=== PATIENT | female | born 2000 | race Caucasian/White ===

== ENCOUNTER 2020-09-09 07:47 | Emergency (ER) | payer BC, OTHER ==
--- OUTSIDE RECORDS SUMMARY | 2020-09-09 07:49 | XMS REPORT | Continuity of Care Document ---
:2000 Author Organization [facility] t Address [address] [place] [address] Care Team Providers Name Role Phone Charanjit Mahoney DO Attending Clinician Lab, Fam Pob I Attending Clinician Unavailable Christian PRINGLE K Attending Clinician Unavailable Meeta MIXON Attending Clinician Doctor Unassigned, Name Attending Clinician Unavailable Problems This patient has no known problems. Allergies, Adverse Reactions, Alerts This patient has no known allergies or adverse reactions. Medications This patient has no known medications. Procedures This patient has no known procedures. Encounters Start End Encounter Admission Attending Care Care Encounter Source Date/Time Date/Time Type Type Clinicians Facility Department ID 2020-09-03 2020-09-03 Patient RADHA Mahoney [id number] 00:00:00 00:00:00 Outreach [facility] [id number] Charanjit [facility] [id number] PAVILLION [phone] [id number] 2020-07-04 2020-07-04 Laboratory Lab, [facility] [id number] 13:21:27 13:41:27 Only Fam [facility] [id number] [place] [id number] Professio [phone] nal [address] One 2020-06-11 2020-06-11 Ancillary Christian [facility] [id number] 1994 14:27:24 15:07:24 Visit Sabine Shin [id number] [place] [id number] Professio [phone] nal 179 Building 2020-06-05 2020-06-05 Ancillary Christian [facility] [id number] 1989 14:10:02 14:49:37 Visit Sabine Shin [id number] [place] [id number] Professio [phone] [facility] 179 Building 2020-06-04 2020-06-04 Office Meeta [facility] [id number] 13:17:51 14:10:51 Visit [facility] [id number] [place] [id number] [place] [phone] Medical [address] Office Building 2020-06-04 2020-06-04 Orders Doctor NATHEN [id number] 00:00:00 00:00:00 Only Unassigned, RENÉ [id number] [facility] [phone] [id number] Results This patient has no known results.
--- NOTE | 2020-09-09 09:30 | RAD REPORT ---
EXAM DESCRIPTION: RAD - Wrist Right 3 View - 09/09/2020 8:52 am CLINICAL HISTORY: PAIN COMPARISON: No comparisons FINDINGS: No fracture is identified. There is no dislocation or periosteal reaction noted. Epiphyses and growth plates are normal in appearance. No foreign body or other soft tissue abnormality. IMPRESSION: Negative right wrist examination.
--- NOTE | 2020-09-09 09:31 | RAD REPORT ---
EXAM DESCRIPTION: RAD - Forearm Right - 09/09/2020 8:53 am CLINICAL HISTORY: PAIN COMPARISON: No comparisonsNone. FINDINGS: No fracture is identified. There is no dislocation or periosteal reaction noted. No foreign body or other soft tissue abnormality. IMPRESSION: Negative right forearm examination.
--- NOTE | 2020-09-09 10:32 | ER ---
Nurse's Notes [facility] Name: Nae Zambrano Age: 20 yrs Sex: Female : 2000 Arrival Date: 09/09/2020 Time: 07:53 Bed 23 Private MD: Diagnosis: Contusion of right wrist;Contusion of right forearm Presentation: 09/09 08:22 Chief complaint: Patient states: was pulling pallets and two crates fell on her right iw arm and hand X 2 days ago, pain has gotten worse. Coronavirus screen: At this time, the client does not indicate any symptoms associated with coronavirus-19. Ebola Screen: Patient negative for fever greater than or equal to 101.5 degrees Fahrenheit, and additional compatible Ebola Virus Disease symptoms Patient denies exposure to infectious person. Patient denies travel to an Ebola-affected area in the 21 days before illness onset. No symptoms or risks identified at this time. Initial Sepsis Screen: Does the patient meet any 2 criteria? No. Patient's initial sepsis screen is negative. Does the patient have a suspected source of infection? No. Patient's initial sepsis screen is negative. Risk Assessment: Do you want to hurt yourself or someone else? Patient reports no desire to harm self or others. Onset of symptoms was September 07, 2020. 08:22 Method Of Arrival: Ambulatory iw 08:22 Acuity: RAFAEL 4 iw Triage Assessment: 10:30 General: Appears in no apparent distress. Behavior is calm, cooperative. iw 10:30 Pain: Complains of pain in right forearm and right wrist. 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 - Social history:: Smoking status: Patient denies any tobacco usage or history of. Screenin:30 Abuse screen: Denies threats or abuse. Denies injuries from another. Nutritional iw screening: No deficits noted. Tuberculosis screening: No symptoms or risk factors identified. Fall Risk None identified. Assessment: 10:30 Reassessment: Patient appears in no apparent distress at this time. Patient and/or iw family updated on plan of care and expected duration. Pain level reassessed. Patient is alert, oriented x 3, equal unlabored respirations, skin warm/dry/pink. Vital Signs: 08:22 BP 142 / 97; Pulse 83; Resp 16; Temp 98.4; Pulse Ox 100% on R/A; Weight 59.87 kg; iw Height 6 ft. 0 in. (182.88 cm); Pain 8/10; 10:53 BP 125 / 79; Pulse 70; Resp 16; Pulse Ox 98% on R/A; iw 08:22 Body Mass Index 17.90 (59.87 kg, 182.88 cm) iw ED Course: 07:53 Patient arrived in ED. am2 08:24 Triage completed. iw 08:28 Arm band placed on. iw 08:44 Patient moved to radiology ambulatory. ml 08:51 X-ray completed. Patient tolerated procedure well. Patient moved back from radiology. ml 08:52 Wrist Right 3 View XRAY In Process Unspecified. EDMS 08:52 Forearm Right XRAY In Process Unspecified. EDMS 10:09 Azalea Giraldo RN is Primary Nurse. iw 10:14 Ilya Villegas NP is PHCP. pm1 10:14 Harpreet Bojorquez MD is Attending Physician. pm1 10:18 Azalea Giraldo RN is Primary Nurse. iw 10:51 Patient has correct armband on for positive identification. iw 10:52 No provider procedures requiring assistance completed. Patient did not have IV access iw during this emergency room visit. Administered Medications: 10:40 Drug: [place] (HYDROcodone-acetaminophen) 5 mg-325 mg 2 tabs Route: PO; iw 11:00 Follow up: Response: No adverse reaction iw Outcome: 10:31 Discharge ordered by . pm1 10:52 Discharged to home ambulatory. iw 10:52 Condition: good 10:52 Discharge instructions given to patient, Instructed on discharge instructions, follow up and referral plans. medication usage, Demonstrated understanding of instructions, follow-up care, medications, Prescriptions given X 1. 10:53 Patient left the ED. iw Signatures: Dispatcher [employer] EDMS Azalea Giraldo RN RN Sabine Castañeda Ilya Villegas NP REGISTERED PRIVATE DUTY NURSE pm1 Vicki Bullard am2 Corrections: (The following items were deleted from the chart) 15:29 10:52 Discharge instructions given to patient, Instructed on discharge instructions, iw follow up and referral plans. medication usage, Demonstrated understanding of instructions, follow-up care, medications, Prescriptions given X 2, iw
--- NOTE | 2020-09-09 10:32 | EDPHYS ---
Physician Documentation [facility] Name: Nae Zambrano Age: 20 yrs Sex: Female : 2000 Arrival Date: 09/09/2020 Time: 07:53 Bed 23 Private MD: ED Physician Harpreet Bojorquez HPI: 09/09 10:22 This 20 yrs old Female presents to ER via Ambulatory with complaints of Wrist pm1 Pain, Arm Pain. 10:30 The patient or guardian reports pain. The complaints affect the right wrist diffusely. pm1 Context: The problem was sustained at work, resulted from [employer] on patient's right wrist and forearm while she was moving it with a harlan. Onset: The symptoms/episode began/occurred 2 day(s) ago. Modifying factors: The symptoms are alleviated by holding still, the symptoms are aggravated by movement. Associated signs and symptoms: The patient has no apparent associated signs or symptoms, Pertinent negatives: cyanosis distally, decreased sensation distally, numbness distally, tingling distally. The patient has not experienced similar symptoms in the past. The patient has not recently seen a physician. 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 - Social history:: Smoking status: Patient denies any tobacco usage or history of. ROS: 10:30 Constitutional: Negative for fever, chills, and weight loss, Cardiovascular: Negative pm1 for chest pain, palpitations, and edema, Respiratory: Negative for shortness of breath, cough, wheezing, and pleuritic chest pain, Abdomen/GI: Negative for abdominal pain, nausea, vomiting, diarrhea, and constipation, Back: Negative for injury and pain. 10:30 Skin: Negative for injury, rash, and discoloration, Neuro: Negative for headache, weakness, numbness, tingling, and seizure. 10:30 MS/extremity: Positive for pain, of the right wrist and right forearm, Negative for decreased range of motion, deformity. Exam: 10:30 Constitutional: This is a well developed, well nourished patient who is awake, alert, pm1 and in no acute distress. Head/Face: Normocephalic, atraumatic. 10:30 Skin: Warm, dry with normal turgor. Normal color with no rashes, no lesions, and no evidence of cellulitis. 10:30 Cardiovascular: Exam negative for acute changes, Rate: normal, Rhythm: regular, Pulses: no pulse deficits are appreciated. 10:30 Respiratory: Exam negative for acute changes, respiratory distress, shortness of breath. 10:30 Musculoskeletal/extremity: Extremities: grossly normal except: noted in the right forearm and right wrist: tenderness, There is no evidence of decreased ROM, deformity, swelling. 10:30 Neuro: Exam negative for acute changes, Orientation: is normal, Mentation: is normal, Motor: is normal, moves all fours. Vital Signs: 08:22 BP 142 / 97; Pulse 83; Resp 16; Temp 98.4; Pulse Ox 100% on R/A; Weight 59.87 kg; iw Height 6 ft. 0 in. (182.88 cm); Pain 8/10; 10:53 BP 125 / 79; Pulse 70; Resp 16; Pulse Ox 98% on R/A; iw 08:22 Body Mass Index 17.90 (59.87 kg, 182.88 cm) iw MDM: 10:22 Patient medically screened. pm1 10:30 Data reviewed: vital signs. Data interpreted: Pulse oximetry: on room air is 100 %. pm1 Interpretation: normal. Counseling: I had a detailed discussion with the patient and/or guardian regarding: the historical points, exam findings, and any diagnostic results supporting the discharge/admit diagnosis, radiology results, the need for outpatient follow up, a family practitioner, a orthopedic surgeon, to return to the emergency department if symptoms worsen or persist or if there are any questions or concerns that arise at home. 10:33 ED course: PMPaware reviewed. pm1 09/09 08:30 Order name: Wrist Right 3 View XRAY; Complete Time: 10:22 iw 09/09 08:30 Order name: Forearm Right XRAY; Complete Time: 10: iw 09/09 10:33 Order name: Splint - Wrist; Complete Time: 10:41 pm1 Administered Medications: 10:40 Drug: [place] (HYDROcodone-acetaminophen) 5 mg-325 mg 2 tabs Route: PO; iw 11:00 Follow up: Response: No adverse reaction iw Disposition: 09/09/20 10:31 Discharged to Home. Impression: Contusion of right wrist, Contusion of right forearm. - Condition is Stable. - Discharge Instructions: Contusion. - Prescriptions for Tylenol- Codeine #3 300-30 mg Oral Tablet - take 2 tablets by ORAL route every 4-6 hours As needed; 20 tablet. - Work release form, Medication Reconciliation Form, Thank You Letter, Antibiotic Education, Prescription Opioid Use form. - Follow up: Emergency Department; When: As needed; Reason: Worsening of condition. Follow up: Private Physician; When: 2 - 3 days; Reason: Recheck today's complaints, Continuance of care, Re-evaluation by your physician. - Problem is new. - Symptoms have improved. Addendum: 09/10/2020 18:34 Co-signature as Attending Physician, Harpreet Bojorquez MD. m a2 Signatures: Dispatcher [employer] EDAzalea Galloway RN RN iw Ilya Villegas NP PEARL CUTTER pm1 Harpreet Bojorquez MD MD ma2 Corrections: (The following items were deleted from the chart) 09/09 10:53 10:31 09/09/2020 10:31 Discharged to Home. Impression: Contusion of right wrist; iw Contusion of right forearm. Condition is Stable. Forms are Medication Reconciliation Form, Thank You Letter, Antibiotic Education, Prescription Opioid Use. Follow up: Emergency Department; When: As needed; Reason: Worsening of condition. Follow up: Private Physician; When: 2 - 3 days; Reason: Recheck today's complaints, Continuance of care, Re-evaluation by your physician. Problem is new. Symptoms have improved. pm1
[2020-09-09] MEDS ORDERED: HYDROCODONE/APAP 5/325 MG TAB ONE (10:56)
[2020-09-09 10:58] VITALS: TEMP 98.4
[2020-09-09 11:11] VITALS: BP 125/79; O2SAT 98
== END 2020-09-09 10:53 | disposition home or self-care (01) ==
LOC: ER 07:47
DX: S60.211A Contusion of right wrist, initial encounter (principal); S50.11XA Contusion of right forearm, initial encounter; W22.8XXA Striking against or struck by other objects, initial encounter; Y93.89 Activity, other specified; Y92.89 Other specified places as the place of occurrence of the external cause; Y99.8 Other external cause status; F31.9 Bipolar disorder, unspecified
CPT/HCPCS: 99283